=== PATIENT | male | born 1980 | race Caucasian/White ===

== ENCOUNTER → 2020-10-08 10:15 | Outpatient (CLI) | payer OTHER, SELFPAY ==
[2020-10-08] MEDS: COVID-19 VACC, Ad26(JANSSEN)/PF 0.5 ML IM (10:29)
== END ==
PROVIDERS: PCP Family Medicine; Visit Provider Internal Medicine
DX: Z23 Encounter for immunization (principal)
CPT/HCPCS: 0031A; 91303

== ENCOUNTER → 2022-02-07 14:09 | Outpatient (CLI) | payer OTHER, SELFPAY ==
[2022-02-07 14:32] LABS: Semen Sperm Prescence Post-Vas Absent (ABSENT)
== END ==
PROVIDERS: PCP Family Medicine; Referring Provider Specialist; Visit Provider Specialist
DX: Z98.52 Vasectomy status (principal)
CPT/HCPCS: 89321

== ENCOUNTER 2023-02-10 11:21 | Emergency (ER) | payer OTHER, SELFPAY ==
[2023-02-10 11:26] VITALS: BP 122/65; PULSE 81; RESP 20; TEMP 36.8; O2SAT 100; BMI 20.3
--- NOTE | 2023-02-10 13:25 | ED_ITS ---
HPI - Extremity Injury (Lower) <ELIZABET Espinoza - Last Filed: 02/10/23 15:52> General Chief Complaint: Extremity Injury, Lower Stated Complaint: sent by [facility] for muscle cramps/ high B/P Time Seen by Provider: 02/10/23 13:12 Source: patient Mode of arrival: Ambulatory History of Present Illness HPI Narrative: This is a 43-year-old gentleman with history of depression, chronic pain, anxiety who presents to the emergency department today complaining of increased muscle cramps especially in his bilateral calves related to his diet. He states that he has been on a low carb diet for 8 months, is concerned about his triglycerides and cholesterol levels because he has been told that his levels are too high. He denies wanting a statin and states that he is here for evaluation of the increasing cramps with fears that his electrolytes are off balance. He has scheduled follow-up with Dr. Larson in 3 days and states that he is had weight loss related to his diet. He denies having much energy, states he has eaten today but has not eaten much. He denies taking a multivitamin. States that he has been drinking salt water and trying to consume electrolyte beverages. Endorses that he starts to feel anxious about this because he fears that his cramps are going to return and his pain is severe when this happens. Related Data Home Medications Medication Instructions Recorded Confirmed naproxen sodium 220 mg capsule 220 mg PO BID PRN 07/13/20 06/23/21 (Aleve) sertraline 50 mg tablet 75 mg PO DAILY 07/13/20 06/23/21 Previous Rx's Medication Instructions Recorded cyclobenzaprine 5 mg tablet 5 mg PO TID PRN muscle spasm #30 03/25/21 tabs alprazolam 1 mg tablet 1 mg PO BID #2 tabs 05/19/21 oxycodone 5 mg tablet 5 mg PO Q4H PRN pain #4 tabs 05/19/21 Allergies Allergy/AdvReac Type Severity Reaction Status Date / Time Penicillins Allergy Intermediate Verified 02/10/23 11:38 Sulfa (Sulfonamide Allergy Intermediate Verified 02/10/23 11:38 Antibiotics) Review of Systems <ELIZABET Espinoza - Last Filed: 02/10/23 15:52> Review of Systems ROS Unobtainable: All systems reviewed & are unremarkable except as noted in HPI and below Patient History <ELIZABET Espinoza - Last Filed: 02/10/23 15:52> Medical History Body posture problem Cervical somatic dysfunction Chronic back pain (~2018) Chronic neck pain with normal neurological examination Cranial somatic dysfunction Depression (~1991) Eczema (~1990) History of concussion Lumbar region somatic dysfunction Migraines (~2004) Neck stiffness Pelvic somatic dysfunction Sacral region somatic dysfunction Sacroiliac joint dysfunction of both sides Segmental and somatic dysfunction of abdomen and other regions Sterilization consult Thoracic region somatic dysfunction Upper extremity somatic dysfunction Social History Smoking Status: Never smoker alcohol intake: never substance use type: does not use Smoking Status: Never smoker alcohol intake frequency: 0-2 drinks per day Substance Use Type: does not use Exam <ELIZABET Espinoza - Last Filed: 02/10/23 15:52> Narrative Exam Narrative: Reviewed vitals signs and nursing notes. General: Pleasant, sitting upright, appears depressed and withdrawn, in no acute distress, well groomed, afebrile HEENT: symmetrical facial expressions, moist mucous membranes, neck is supple CV: regular rate and rhythm, warm extremities Respiratory: normal work of breathing, without tachypnea or hypoxia. GI: abdomen soft, nondistended, without CVA tenderness bilaterally. MSK: moves all extremities, no weakness, normal tone, ambulatory without deficit Skin: brisk capillary refill, without rash or wound Neuro: clear speech and normal cognition, A&O x3, GCS 15, no focal motor or sensation deficits Initial Vital Signs Initial Vital Signs: Vital Signs Temperature 98.3 F 02/10/23 11:26 Pulse Rate 81 02/10/23 11:26 Respiratory Rate 20 02/10/23 11:26 Blood Pressure 122/65 02/10/23 11:26 Pulse Oximetry 100 02/10/23 11:26 Oxygen Delivery Method Room Air 02/10/23 11:26 <Leatha Mays DO - Last Filed: 02/13/23 09:12> Initial Vital Signs Initial Vital Signs: Vital Signs Temperature 98.3 F 02/10/23 11:26 Pulse Rate 81 08/12/23 11:26 Respiratory Rate 20 02/10/23 11:26 Blood Pressure 122/65 02/10/23 11:26 Pulse Oximetry 100 02/10/23 11:26 Oxygen Delivery Method Room Air 02/10/23 11:26 Course <ELIZABET Espinoza - Last Filed: 02/10/23 15:52> Orders Ordered: ED Orders 02/10/23 13:38 CMP [Comprehensive Metabolic Panel] Stat Lipase Stat Magnesium Stat Phosphorous Stat Vital Signs Vital signs: Vital Signs - 8 hr 02/10/23 11:26 02/10/23 14:38 Temperature 98.3 F Pulse Rate 81 76 Respiratory Rate 20 16 Blood Pressure 122/65 Pulse Oximetry 100 100 Oxygen Delivery Method Room Air Room Air <Leatha Mays DO - Last Filed: 02/13/23 09:12> Orders Ordered: ED Orders 02/10/23 13:38 CMP [Comprehensive Metabolic Panel] Stat Lipase Stat Magnesium Stat Phosphorous Stat Vital Signs Vital signs: Vital Signs - 8 hr 02/10/23 11:26 02/10/23 14:38 Temperature 98.3 F Pulse Rate 81 76 Respiratory Rate 20 16 Blood Pressure 122/65 Pulse Oximetry 100 100 Oxygen Delivery Method Room Air Room Air MDM - Extremity Injury (Lower) <ELIZABET Espinoza - Last Filed: 02/10/23 15:52> Lab Data 02/10/23 13:38 Labs: Lab Results 02/10/23 Range/Units 13:38 Sodium 133 L (137-145) mmol/L Potassium 4.3 (3.4-5.1) mmol/L Chloride 99 (98-107) mmol/L Carbon Dioxide 26 (22-32) mmol/L BUN 25 H (9-20) mg/dL Creatinine 0.90 (0.66-1.25) mg/dL Estimated GFR > 60 (>60) mL/min BUN/Creatinine Ratio 27.8 H (6-22) Glucose 105 H (70-100) mg/dL Calcium 9.1 (8.4-10.2) mg/dL Phosphorus 3.8 (2.5-4.5) mg/dL Magnesium 2.3 (1.6-2.3) mg/dL Total Bilirubin 0.4 (0.2-1.3) mg/dL AST 34 (17-59) IU/L ALT 42 (<50) IU/L Alkaline Phosphatase 89 (38-126) U/L Total Protein 7.1 (6.3-8.2) g/dL Albumin 4.3 (3.5-5.0) g/dL Globulin 2.8 (1.7-4.1) g/dL Albumin/Globulin Ratio 1.5 (1.0-2.8) Lipase 128 (23-300) U/L MDM Narrative Medical decision making narrative: Chief Complaint: Muscle cramps Multiple etiologies for patient's complaint considered including, but not limited to: Electrolyte abnormality, muscle cramp related to other problem, malnutrition, anxiety, panic disorder I have independently reviewed the patient's vital signs and nursing notes as well as prior records if available. Plan: Patient wishes to have his blood drawn to evaluate his electrolyte levels. No fear about his cholesterol at this time but states that he is okay with his cholesterol numbers but afraid that his muscle cramps or due to a vitamin or jaqueline ctrolyte deficiency. He denies palpitations, chest pain, shortness of breath, weakness, fainting or other abnormality. My interpretation of lab results: Patient's chemistries significant for hyponat remia of 133 without evidence of neuro deficit, his BUN is elevated at 25 but his creatinine and GFR remain within normal limits, we discussed hydration with plenty of clear fluids as he has dry mucous membranes and reports not drinking very much fluid today. There are no electrolyte abnormalities otherwise, I suspect his hyponatremia is causing his muscle cramps in his legs. I encouraged him to follow a heart healthy diet with everything in moderation, we discussed his mental health which patient expresses anxiety about this and talked at length about his fears of heart injury from his diet but isn't willing to change his diet because he does not want to gain weight he had before. I encouraged him to follow-up with his PCP to discuss his anxiety related to this, his lab work and make a plan regarding his muscle aches. Has a scheduled appointment with Dr. Larson in 3 days. I think patient would benefit from an antidepressant which also works with anxiety and I did not find anything medically concerning on my exam or during my interview. Social considerations that may affect disposition: none Questions are addressed and there is agreement with the plan and for follow-up with Dr. Larson. I consulted with the ED attending physician Dr. Mays as needed for higher level of care considerations and they were available for discussion and recommendations regarding plan of care and diagnostic testing. Patient is appropriate for outpatient management. <Leatha Nunn Davon, DO - Last Filed: 02/13/23 09:12> Lab Data Labs: Lab Results 02/10/23 Range/Units 13:38 Sodium 133 L (137-145) mmol/L Potassium 4.3 (3.4-5.1) mmol/L Chloride 99 (98-107) mmol/L Carbon Dioxide 26 (22-32) mmol/L BUN 25 H (9-20) mg/dL Creatinine 0.90 (0.66-1.25) mg/dL Estimated GFR > 60 (>60) mL/min BUN/Creatinine Ratio 27.8 H (6-22) Glucose 105 H (70-100) mg/dL Calcium 9.1 (8.4-10.2) mg/dL Phosphorus 3.8 (2.5-4.5) mg/dL Magnesium 2.3 (1.6-2.3) mg/dL Total Bilirubin 0.4 (0.2-1.3) mg/dL AST 34 (17-59) IU/L ALT 42 (<50) IU/L Alkaline Phosphatase 89 (38-126) U/L Total Protein 7.1 (6.3-8.2) g/dL Albumin 4.3 (3.5-5.0) g/dL Globulin 2.8 (1.7-4.1) g/dL Albumin/Globulin Ratio 1.5 (1.0-2.8) Lipase 128 (23-300) U/L Discharge Plan Departure Patient Disposition: Home Clinical Impression: Encounter for laboratory test, Anxiety about health Instructions: Nocturnal Leg Cramps, Calf Muscle Strain, Heart-Healthy Diet Activity Restrictions/Additional Instructions: *You have been diagnosed with a slightly decreased sodium level and an elevated BUN level. The BUN reflex the high-protein diet you have had with likely not as much fluid as he should be drinking. The sodium level means that you should incorporate more salt into her diet. This may be the result of your diet. The rest of your electrolytes are normal, no abnormalities to be concerned about. Please stay hydrated, go to your appointment with Dr. Barnett and have your lifts redrawn, I want you to discuss her mood and anxiety about your Health because you may benefit from a medication change to support your mental health more. I am glad that you came in to check on yourself, please be reassured that nothing dangerous on your lab work today. I anticipate you take it better if you incorporate fluids and salt into your diet. *What to do: *Please continue to take your regular medications as directed. [ ] New medication prescriptions sent to your pharmacy: [ ] [ ] New medication written as a paper prescription [x ] No new medications given *Please call and schedule follow up with your primary care provider in 2-3 days, at least for an update. Let them know you were seen in the Emergency Department for the above problem. We will electronically transmit a record of today's note if your PCP or specialist is in our system. *If you do not have a primary care provider please contact [phone] to establish care with one of the [facility] primary care providers. *Return to the Emergency Department for worsening symptoms, inability to keep liquids down, fever greater than 101F, chills, or other concerning symptom. Prescriptions: No Action naproxen sodium [Aleve] 220 mg capsule 220 mg PO BID PRN sertraline 50 mg tablet 75 mg PO DAILY cyclobenzaprine 5 mg tablet 5 mg PO TID PRN (Reason: muscle spasm) Qty: 30 1RF alprazolam 1 mg tablet 1 mg PO BID Qty: 2 0RF Rx Instructions: Take 1 tablet the night before scheduled procedure. Take 2nd tablet 1-2 hours before schedule procedure. oxycodone 5 mg tablet 5 mg PO Q4H PRN (Reason: pain) Qty: 4 0RF Rx Instructions: Take 1 tablet, 1-2 hours before scheduled procedure and then every 4 hours as needed thereafter. Referrals: Miscellaneous,Doctor, [Primary Care Provider] - Thor Larson DO [Physician] - Stand Alone Forms: Patient Portal/API <Leatha Mays DO - Last Filed: 02/13/23 09:12> [facility] Att[facility]: I was immediately available in the department for consultation. Documentation has been reviewed. Case discussed.
[2023-02-10 13:55] LABS: Alanine Aminotransferase 42 IU/L (<50); Albumin 4.3 g/dL (3.5-5.0); Albumin Globulin Ratio 1.5 (1.0-2.8); Alkaline Phosphatase 89 U/L (38-126); Aspartate Aminotransferase 34 IU/L (17-59); BUN Creatinine Ratio 27.8 (6-22); Bilirubin Total 0.4 mg/dL (0.2-1.3); Blood Urea Nitrogen 25 mg/dL (9-20); Calcium 9.1 mg/dL (8.4-10.2); Carbon Dioxide 26 mmol/L (22-32); Chloride 99 mmol/L (98-107); Estimated Glomerular Filt Rate > 60 mL/min (>60); Globulin 2.8 g/dL (1.7-4.1); Glucose 105 mg/dL (70-100); HEMOLYSIS 16 (0-50); Lipase 128 U/L (23-300); Magnesium 2.3 mg/dL (1.6-2.3); Phosphorous 3.8 mg/dL (2.5-4.5); Potassium 4.3 mmol/L (3.4-5.1); Sodium 133 mmol/L (137-145); Total Protein 7.1 g/dL (6.3-8.2)
[2023-02-10 14:38] VITALS: PULSE 76; RESP 16; O2SAT 100
== END 2023-02-10 14:44 | disposition home or self-care (01) ==
PROVIDERS: Emergency Provider Nurse Practitioner Critical Care Medicine
DX: R25.2 Cramp and spasm (principal); E87.1 Hypo-osmolality and hyponatremia; F41.9 Anxiety disorder, unspecified
CPT/HCPCS: 36415; 80053; 83690; 83735; 84100; 99283

== ENCOUNTER → 2023-08-23 09:10 | Outpatient (CLI) | payer OTHER, SELFPAY ==
[2023-08-23 10:50] LABS: Alanine Aminotransferase 49 IU/L (<50); Albumin 4.3 g/dL (3.5-5.0); Albumin Globulin Ratio 1.6 (1.0-2.8); Alkaline Phosphatase 82 U/L (38-126); Aspartate Aminotransferase 34 IU/L (17-59); BUN Creatinine Ratio 27.6 (6-22); Bilirubin Total 0.5 mg/dL (0.2-1.3); Blood Urea Nitrogen 24 mg/dL (9-20); Calcium 9.2 mg/dL (8.4-10.2); Carbon Dioxide 27 mmol/L (22-32); Chloride 99 mmol/L (98-107); Estimated Glomerular Filt Rate > 60 mL/min (>60); Globulin 2.7 g/dL (1.7-4.1); Glucose 97 mg/dL (70-100); HEMOLYSIS < 15 (0-50); Potassium 4.5 mmol/L (3.4-5.1); Sodium 136 mmol/L (137-145)
[2023-08-26 07:40] LABS: Cholesterol, Total 243 mg/dL (100-199); HDL-Cholesterol 63 mg/dL (>39); HDL-Particle (Total) 30.3 umol/L (>=30.5); LDL Particle 1635 nmol/L (<1000); LDL Size 21.6 nm (>20.5); LDL-Cholsterol 170 mg/dL (0-99); LP-IR Score 30 (<=45); Small LDL- Particle 245 nmol/L (<=527); Triglycerides 62 mg/dL (0-149)
== END ==
LOC: LAB 09:12
PROVIDERS: PCP Family Medicine; Referring Provider Family Medicine; Visit Provider Family Medicine
DX: E78.5 Hyperlipidemia, unspecified (principal)
CPT/HCPCS: 36415; 80053; 80061; 83704

== ENCOUNTER → 2023-09-11 10:35 | Outpatient (CLI) | payer OTHER, SELFPAY ==
[2023-09-11 14:57] LABS: COVID-19 CEPHEID 4-PLEX PCR Negative (Negative); Influenza A - CEPHEID Flu A NEGATIVE (NEGATIVE); Influenza B - CEPHEID Flu B NEGATIVE (NEGATIVE); Respiratory Syncytial Virus Negative (Negative)
== END ==
PROVIDERS: PCP Family Medicine; Visit Provider Physician Assistant
DX: R52 Pain, unspecified (principal)
CPT/HCPCS: 0241U

== ENCOUNTER → 2024-02-06 07:00 | Outpatient (CLI) | payer OTHER, SELFPAY ==
[2024-02-06 08:39] LABS: Alanine Aminotransferase 49 IU/L (<50); Albumin 4.1 g/dL (3.5-5.0); Albumin Globulin Ratio 1.8 (1.0-2.8); Alkaline Phosphatase 120 U/L (38-126); Aspartate Aminotransferase 39 IU/L (17-59); BUN Creatinine Ratio 33.7 (6-22); Bilirubin Total 0.4 mg/dL (0.2-1.3); Blood Urea Nitrogen 31 mg/dL (9-20); Calcium 8.9 mg/dL (8.4-10.2); Carbon Dioxide 25 mmol/L (22-32); Chloride 102 mmol/L (98-107); Cholesterol 193 mg/dL (140-199); Estimated Glomerular Filt Rate > 60 mL/min (>60); Globulin 2.3 g/dL (1.7-4.1); Glucose 90 mg/dL (70-100); HDL Cholesterol 52 mg/dL (40-60); HEMOLYSIS < 15 (0-50); LDL Cholesterol Calculated 129 mg/dL (<100); Potassium 4.1 mmol/L (3.4-5.1); Sodium 135 mmol/L (137-145); Total Protein 6.4 g/dL (6.3-8.2); Triglycerides 61 mg/dL (35-150)
[2024-02-06 08:43] LABS: High Sensitivity CRP - Cardiac < 0.3 mg/L (1.0-3.0)
[2024-02-06 09:11] LABS: Testosterone 491 ng/dL (132-813)
[2024-02-06 09:16] LABS: Add Manual Diff / Slide Review NO; Basophils Absolute Auto 0 /uL (0-100); Basophils Percent Auto 0.8 % (0-2); Eosinophils Absolute Auto 0 /uL (0-450); Eosinophils Percent Auto 1.1 % (2-4); Hematocrit 46.1 % (41-53); Hemoglobin 15.3 g/dL (13.5-17.5); Lymphocytes Absolute Auto 1400 /uL (1100-4500); Mean Corpuscular HGB Conc 33.3 % (30-36); Mean Corpuscular Hemoglobin 28.3 PG (26-34); Monocytes Absolute Auto 400 /uL (0-900); Monocytes Percent Auto 10.2 % (3-14); Neutrophils Absolute Auto 2000 /uL (1500-7000); Neutrophils Percent Auto 51.9 % (50-75); Platelet Count 173 X10^3/uL (150-400); Red Blood Cell Count 5.42 X10^6/uL (4.5-5.9); Red Cell Distribution Width 14.6 % (11.6-14.8); White Blood Cell Count 3.8 X10^3/uL (4.5-11.0)
[2024-02-06 09:53] LABS: Hemoglobin A1C% w Est Avg Glu 5.8 % (4.0-6.0)
[2024-02-07 04:12] LABS: Homocysteine 13.3 umol/L (0.0-14.5)
== END ==
PROVIDERS: PCP Family Medicine; Referring Provider Family Medicine; Visit Provider Family Medicine
DX: E78.00 Pure hypercholesterolemia, unspecified (principal); Q89.3 Situs inversus; F41.9 Anxiety disorder, unspecified; F32.5 Major depressive disorder, single episode, in full remission; R73.02 Impaired glucose tolerance (oral); M99.04 Segmental and somatic dysfunction of sacral region; E34.9 Endocrine disorder, unspecified
CPT/HCPCS: 36415; 80053; 80061; 83036; 83090; 84403; 85025; 86140

== ENCOUNTER → 2024-05-05 11:01 | Outpatient (CLI) | payer BC, SELFPAY ==
[2024-05-05 13:17] LABS: COVID-19 CEPHEID 4-PLEX PCR Negative (Negative); Influenza A - CEPHEID Flu A NEGATIVE (NEGATIVE); Influenza B - CEPHEID Flu B NEGATIVE (NEGATIVE); Respiratory Syncytial Virus Negative (Negative)
== END ==
PROVIDERS: PCP Family Medicine; Referring Provider Physician Assistant; Visit Provider Physician Assistant
DX: R05.1 Acute cough (principal); B34.9 Viral infection, unspecified
CPT/HCPCS: 0241U

== ENCOUNTER → 2024-05-07 08:16 | Outpatient (CLI) | payer BC, SELFPAY ==
[2024-05-07 10:32] LABS: Influenza A - CEPHEID Flu A NEGATIVE (NEGATIVE); Influenza B - CEPHEID Flu B NEGATIVE (NEGATIVE); Respiratory Syncytial Virus Negative (Negative)
[2024-05-07 10:33] LABS: COVID-19 CEPHEID 4-PLEX PCR Negative (Negative)
== END ==
PROVIDERS: PCP Family Medicine; Visit Provider Student in an Organized Health Care Education/Training Program
DX: R05.1 Acute cough (principal); J06.9 Acute upper respiratory infection, unspecified
CPT/HCPCS: 0241U